=== PATIENT | female | born 1960 | race Two or more races ===

== ENCOUNTER 2018-09-08 13:41 | Emergency (ER) | payer OTHER ==
[2018-09-08 14:00] VITALS: BMI 26.6
--- NOTE | 2018-09-08 15:33 | PDOC ---
History of Present Illness <Che Arevalo - Last Filed: 09/08/18 16:47> - General History Source: Patient Exam Limitations: No Limitations - History of Present Illness Initial Comments: 09/08/18 15:30 58 yo F with a hx of breast cancer (remission since 2009, s/p lumpectomy no LN involvement), HTN, and migraines presents to the emergency department with headache that has been ongoing since this morning. Per the patient, she began having tension like headaches this morning with gradual onset that feel like her previous headaches, "feels like a band around my head", 02/26, origination in frontal head radiation to the right ear without the following associative symptoms: nausea, vomiting, visual changes, FND, chest pain, reflux, abdominal pain, SOB, and ear aches. Pain worsens with light and noise and relieves with sleep and darknes. No recent URI. She has been feeling more stressed at work lateley and had a recent passing of her sister last month from breast cancer. The patient had an MRI done 1 month ago with contrast that was normal and is followed by Dr. Salazar. She takes magnesium daily and does not use medications for her headache. <Manny Hammonds - Last Filed: 09/09/18 01:42> - General Chief Complaint: Migraine Headache Stated Complaint: HEADACHE Time Seen by Provider: 09/08/18 13:54 Past History <Che Arevalo - Last Filed: 09/08/18 16:47> - Past Medical History Cancer: Yes (rt breast) COPD: No HTN: Yes Other medical history: herniated disk - Suicide/Smoking/Psychosocial Hx Smoking History: Never smoked Have you smoked in the past 12 months: No Information on smoking cessation initiated: No Hx Alcohol Use: No Drug/Substance Use Hx: No <Manny Hammonds - Last Filed: 09/09/18 01:42> - Past Medical History Allergies/Adverse Reactions: Allergies Allergy/AdvReac Type Severity Reaction Status Date / Time codeine Allergy Verified 09/08/18 13:56 Home Medications: Ambulatory Orders NK [No Known Home Medication] 09/08/18 Review of Systems - Review of Systems Able to Perform ROS?: Yes Is the patient limited [place] proficient: No Constitutional: No: Chills, Diaphoresis, Fever, Weakness HEENTM: No: Recent change in vision, Ear Pain, Nose Pain, Throat Pain, Mouth Pain Respiratory: No: Cough, Shortness of Breath Cardiac (ROS): No: Chest Pain, Lightheadedness, Palpitations, Syncope ABD/GI: No: Constipated, Diarrhea, Nausea, Poor Appetite, Poor Fluid Intake, Rectal Bleeding, Vomiting, Tarry Stools : No: Burning, Dysuria, Hematuria, Incontinence Musculoskeletal: No: Back Pain, Joint Pain, Neck Pain Integumentary: No: Bruising, Erythema, Rash Neurological: Yes: Headache. No: Numbness, Tingling, Tremors, Dizziness Psychiatric: No: Change in Appetite Endocrine: No: Unexplained Weight Gain <Manny Hammonds - Last Filed: 09/09/18 01:42> *Physical Exam - Vital Signs Last Vital Signs Temp Pulse Resp BP Pulse Ox 97.9 F 77 18 140/101 H 98 09/08/18 13:57 09/08/18 13:57 09/08/18 13:57 09/08/18 13:57 09/08/18 13:57 <Che Arevalo - Last Filed: 09/08/18 16:47> - Vital Signs Last Vital Signs Temp Pulse Resp BP Pulse Ox 97.9 F 77 18 140/101 H 98 09/08/18 13:57 09/08/18 13:57 09/08/18 13:57 09/08/18 13:57 09/08/18 13:57 - Physical Exam General Appearance: Yes: Nourished, Appropriately Dressed. No: Apparent Distress, Intoxicated HEENT: positive: EOMI, DEANNE, Normal ENT Inspection, Normal Voice, Symmetrical, TMs Normal, Pharynx Normal, Hearing Grossly Normal. negative: Pale Conjunctivae , Scleral Icterus (R), Scleral Icterus (L), Muffled/Hoarse voice, Pharyngeal Erythema, Tonsillar Exudate, Tonsillar Erythema, Sinus Tenderness, Excessive drooling Neck: positive: Trachea midline, Supple. negative: Tender, Lymphadenopathy (R) , Lymphadenopathy (L), Tender lateral, Tender midline Respiratory/Chest: positive: Lungs Clear, Normal Breath Sounds. negative: Chest Tender, Respiratory Distress, Accessory Muscle Use, Crackles, Rales, Rhonchi, Stridor, Wheezing Cardiovascular: positive: Regular Rhythm, Regular Rate, S1, S2. negative: Systolic Murmur Gastrointestinal/Abdominal: positive: Normal Bowel Sounds, Flat, Soft. negative : Tender, Increased Bowel Sounds, Distended, Guarding, Rebound Lymphatic: negative: Adenopathy Musculoskeletal: positive: Normal Inspection. negative: CVA Tenderness, Vertebral Tenderness Extremity: positive: Normal Capillary Refill, Normal Inspection, Normal Range of Motion. negative: Tender Integumentary: positive: Normal Color, Dry, Warm. negative: Swelling, Ecchymosis Neurologic: positive: disk operator II-XII NML intact, Fully Oriented, Alert, Normal Mood/ Affect, Normal Response, Motor Strength 5/5. negative: Facial Droop, Numbness, Sensory Deficit <Manny Hammonds - Last Filed: 09/09/18 01:42> Medical Decision Making - Medical Decision Making 58 yo F with a hx of breast cancer (remission since 2009, s/p lumpectomy no LN involvement), HTN, and migraines presents to the emergency department with headache that has been ongoing since this morning. Initial vitals: Initial Vital Signs Temp Pulse Resp BP Pulse Ox 97.9 F 77 18 140/101 H 98 09/08/18 13:57 09/08/18 13:57 09/08/18 13:57 09/08/18 13:57 09/08/18 13:57 Work up: headache: tension vs migraine vs cluster. likely this is tension vs migraine given the quality is the same as her previous headaches that has been ongoing since April with a normal MRI with contrast done 1 month ago per the patient. in addition ,she is followed by Dr. Salazar. Her recent EEG was normal. Patient denies FND, syncope, visual changes. Analgesia medications were offered to the patient. she declined IV medication. PO medication alternatives were offered and the patient declined. She states she does not like to take medications for these and uses magnesium daily PO for headache prophylaxis. Given the patient's history which includes a recent of her sister (! month ago due to cancer) and increased stresses at work, the patient likely is having an exacerbation of her migraines. she was given return precautions and follow up referral to Dr. Salazar. At the time of discharge, the patient was able to walk on their own volition and the patient's headache had improved. Dispo: Discharge <Manny Hammonds - Last Filed: 09/09/18 01:42> *DC/Admit/Observation/Transfer <Che Arevalo - Last Filed: 09/08/18 16:47> - Discharge Dispostion Decision to Admit order: No <Manny Hammonds - Last Filed: 09/09/18 01:42> Diagnosis at time of Disposition: Headache Qualifiers: Headache type: tension-type Headache chronicity pattern: unspecified pattern Intractability: not intractable Qualified Code(s): G44.209 - Tension-type headache, unspecified, not intractable - Discharge Dispostion Disposition: HOME Condition at time of disposition: Good - Referrals Referrals: Beau Martinez MD [Primary Care Provider] - Heladio Salazar MD [Staff Physician] - - Patient Instructions Printed Discharge Instructions: DI for High Blood Pressure, DI for Headache Additional Instructions: you were seen for the evaluation of your headache. based on your history and physical exam, this is an exacerbation of your migraines. you have a normal MRI from 1 month ago. I advise that you follow with Dr. Salazar for follow up care and management. please follow up with him in 3 days after discharge for possible medication change. please return to the emergency department if you have worsening symptoms or new concerning symptoms such as fevers, headache, vomiting, visual or hearing disturbances, abdominal pain, chest pain, shortness of breath, syncope, dehydration, inability to take things by mouth/vomiting, altered mental status, or worsening concerning symptoms. slurring of speech, and imbalance. thank you. please have your blood pressure rechecked and continue taking your medications for blood pressure as prescribed. Please take IBUPROFEN (aka MOTRIN, ADVIL, ALEVE) 400 mg and/or ACETAMINOPHEN ( aka Tylenol) 650-975 mg every 6 hours, as needed, for headache/pain. Please do not take these medications if you have a bleeding disorder, stomach or GI ulcer problems or liver disease. - Post Discharge Activity Forms/Work/School Notes: Back to Work
--- NOTE | 2018-09-08 16:20 | PDOC ---
Attending Attestation - Resident Resident Name: NasraManny - ED Attending Attestation I have performed the following: I have examined & evaluated the patient, The case was reviewed & discussed with the resident, I agree w/resident's findings & plan - HPI HPI: 09/08/18 16:22 58 yo F with a hx of breast cancer (remission since 2009, s/p lumpectomy no LN involvement), HTN, and migraines presents to the emergency department with headache, described as frontal and bandlike, a/w sensitivity to light. no n jono stiffness or fever. no trauma or sz activity.. no vomiting. no weakness or paresthesias. associated with recent stress, passing of her younger sister 1 week ago. stress at work as well. has not taken meds for her headache also noted her BP to be elevated, takes a combo pill but unsure of meds. - Physicial Exam PE: 09/08/18 16:20 Agree with the resident's HPI and PE as documented in the electronic medical record. NAD, well appearing, PERRL, EOMI, nl conjunctiva, anicteric; neck supple. lungs clear, RRR, abdomen soft nontender. PLEITEZ x4, no focal neuro deficits. ambulatory, gait stable. CN II-XII grossly intact. No peripheral edema. normal color for ethnicity, WWP. - Medical Decision Making 09/08/18 16:23 History and physical examination as documented, no focal neurologic deficits. Headache has resolved without analgesia as patient has declined any meds here in the ED. Does not wish for any IV medications to treat her migraine. Her headache has improved down to a 5/10. VS reviewed, HTN noted 140/110s, recheck, likely pain related. DDx. doubt ICH/SDH, no trauma tension vs migraine vs cervicalgia; doubt intra cranial mass as recent imaging neg, and no focal deficits, AMS or sz activity. no meningeal signs, no neck stiffness no imaging indicated at this time, defer CT with recent workup as outlined form patient. He does endorse significant stressors including the of her family member as well as stress with work and home. She had a recent MRI imaging about one month ago in [place] and unremarkable neurologic workup without evidence of stroke, mass lesions. EEG was also performed previously that was normal repeat VS checked no acute events in the ED, comfortable with impression and plan and discharge supportive care, analgesia otc as needed clinical recheck for BP, as likely induced from stressor/known HTN. doubt any end organ damage, no cp or sob or neurologic deficits/changes. neuro followup as outpatient. Pt to be discharged in stable condition. Patient and family made aware of impression and plan, return precautions discussed (including but not limited to worsening pain or symptoms), fevers, or signs of infection, chest pain, respiratory distress, inability to tolerate oral intake, dehydration, syncope, or neurologic changes). Follow up with PMD and/or specialist as recommended, follow up information provided, take medications as instructed for duration of time. continue with supportive care, avoid triggers and precipitants. All questions answered to patient's satisfaction and expressed understanding and comfort with this. Patient does not suffer from an acute life-threatening medical condition at this time she is safe for outpatient follow-up. 09/08/18 16:27
[2018-09-08 17:11] VITALS: BP 147/102; PULSE 71; TEMP 98.7
== END 2018-09-08 16:50 | disposition home or self-care (01) ==
LOC: JER 13:41
DX: G44.209 Tension-type headache, unspecified, not intractable (principal); Z85.3 Personal history of malignant neoplasm of breast
CPT/HCPCS: 99282-25